=== PATIENT | male | born 1970 | race Two or more races ===

== ENCOUNTER 2018-08-25 14:05 | Emergency (ER) | payer SELFPAY ==
[~2018-08-25] VITALS: Ht 167.6 cm; Wt 95.5 kg
[~2018-08-25 14:05] MED LIST: ATOR20TA38 PO; CITA20TA11 PO; DICL100T PO; LISI-471 PO; OMEP20CA9 PO; TEMA30CA PO
[2018-08-25 14:06] VITALS: RESP 20; Ht 167.6 cm; Wt 95.5 kg
[2018-08-25 15:39] VITALS: BP 147/96; PULSE 93
== END 2018-08-25 16:17 | disposition left against medical advice (07) ==
LOC: E/R 14:05
DX: Z53.21 Procedure and treatment not carried out due to patient leaving prior to being seen by health care provider (principal)
CPT/HCPCS: 93005